=== PATIENT | female | born 1990 | race Caucasian/White ===

== ENCOUNTER 2017-02-24 17:33 | Inpatient (IN) ==
--- NOTE | 2017-02-24 16:10 | OB/GYN History & Physical ---
Date of Encounter: 03/01/17 Time of Encounter: 16:01 Assessment and Plan (1) with 37 weeks completed gestation Status: Acute (T1 L1) 37w 1d vaginal delivery x1. complications: Obesity. Hx C. Trachomatis in first . OB: Dr. Miranda. Will intermittently monitor per patient preference. Will continuously monitor if note any concerns for distress. Have encouraged patient to speak with anesthesia regarding epidural knowing she can maintain her refusal. Will manage expectantly. May augment or induce labor as needed. History of Present Illness Chief complaint: Labor evaluation HPI: Ms. Avendano is a 26 year old female presents from Dr. Miranda's office to L&D for evaluation of labor. (T1 L1) 37w 1d complications: Obesity. Hx C. Trachomatis in first . OB: Dr. Miranda. Contraction onset 08:00. This afternoon, contractions noted to be 15min apart and cervix dilated 4cm. She notes light spotting while in L&D. No gush of fluids. Meds: PMH: Allergies: PCN. Blood type: O+ GBS: (-) Rubella IgG: (+) Varicella IgG: (+) HbSAg: non reactive @ 09/01/2016 HIV: non reactive T. Pallidum Ab: (-) N. Gohorrhoeae DNA: (-) C. Trachomatis DNA: (-) Patient prefers to not have an epidural so that she can walk after delivery; has back pain relieved with activity. Baby girl: Zayra Charge Operator: Dr. Langley Past Med Surg Social Fam HX - Past Medical History Medical history: non-contributory Psychiatric history: no psych history - Past Surgical History Surgical History: no surgical history - Social History Smoking Status: Never smoker Alcohol use: none Drug use: none - Family History Mother History Unknown: Yes Hx Family Neuromuscular Disorders: Yes (chiari malformation type I) Obstetrical History - Pregnancies : 2 Para: 1 Term: 1 : 0 Ab's: 0 Livin Medications and Allergies Cvs Loratadine-D 24Hr Tablet 10 mg PO RONALD 02/24/17 [History] RX: Vit No.124/Iron/FA [ Vitamin Tablet] 1 tab PO 02/24/17 [ History] Breast Pump [BREAST PUMP] 1 each .ROUTE AD #1 each 02/26/17 [Rx] RX: Ibuprofen [Motrin] 600 mg PO Q6HR PRN #60 tablet 02/26/17 [Rx] RX: Vit/FA 1 each PO DAILY tablet 02/26/17 [Rx] Allergies penicillin G Allergy (Mild, Verified 02/24/17 15:34) Hives Review of System OB - Nose, mouth, and throat Nose, mouth and throat: no headache(s) - Cardiovascular Cardiovascular: no chest pain, no diaphoresis, no dyspnea - Respiratory Respiratory: no cough - Gastrointestinal Gastrointestinal: nausea, no abdominal pain, no change in bowel habits, no dysphagia, no heartburn - Genitourinary Genitourinary: vaginal discharge (spotting), no difficulty urinating Exam - Vital Signs Vital signs: Initial Vital Signs Temp Pulse Resp BP 97.5 F L 116 20 137/77 02/24/17 14:25 02/24/17 14:25 02/24/17 14:25 02/24/17 14:25 - Constitutional Constitutional: well developed, well nourished, no acute distress, obese - HEENT HEENT: Normocephaly, Mucus Membranes Moist - Neck Neck exam: normal inspection - Lungs Respiratory exam: CTAB - Cardiovascular Cardiovascular exam: RRR, +S1, +S2 - Abdomen Abdomen: Present: bowel sounds normal, gravid, non tender. Absent: guarding noted - Extremities Extremities exam: normal inspection, radial pulses palpable and symetrical Results Result Diagrams: 02/24/17 18:14 All other labs normal. - VTE Reasons for not Prescribing Prophylaxis: Treatment not Indicated - Low risk for VTE
[~2017-02-24 17:33] MED LIST: Famotidine 20 MG/2 ML VIAL IVP PRN; Naloxone 0.4 MG/ML INJ IVP PRN; Ondansetron 4 MG/2 ML VIAL IVP PRN
[2017-02-24] MEDS ORDERED: *HR* Nalbuphine 20 MG/ML AMPUL IVP PRN (17:37)
--- NOTE | 2017-02-24 17:37 | OB Labor Progress Note ---
Date of Encounter: 02/24/17 Time of Encounter: 17:35 Labor Progress Note - Subjective Subjective: Patient reports contractions are getting stronger and increase in bloody show. - Cervix Cervix: 5/100/-1 - Heart Tones Heart Tones: 120 bpm moderate variability + 15x15 accels no decels noted. Cat. 1 tracing - [place]: irregular - Interventions Interventions: SVE, discussed patient with Dr. Miranda. Orders received to admit patient for delivery. - Plan Plan: Admit for delivery. Patient may have nubain and epidural for pain if desires.
[2017-02-24] MEDS ORDERED: Ringers Solution, Lactated 1,000 ML IVC SCH (17:45)
[2017-02-24 18:25] LABS: Basophils # 0.1 K/mcL (0.0-0.2); Basophils % 0.3 %; Eosinophils # 0.1 K/mcL (0.0-0.6); Eosinophils % 0.4 %; Hematocrit 41.8 % (35.3-44.9); Hemoglobin 13.8 g/dL (11.5-15.4); Immature Granulocytes % 0.5 % (0-4); Lymphocytes # 1.4 K/mcL (0.6-4.6); Lymphocytes % 7.8 %; Mean Corpuscular Volume 84.8 fL (83.0-100.0); Mean Platelet Volume 9.7 fL (9.4-12.4); Monocytes # 0.9 K/mcL (0.0-1.3); Monocytes % 5.1 %; Neutrophils # 15.1 K/mcL (1.6-8.9); Platelet Count 342 K/mcL (140-400); Red Blood Count 4.93 M/mcL (3.82-4.97); Red Cell Distribution Width 13.8 % (11.5-14.5); Segmented Neutrophils % 85.9 %
--- NOTE | 2017-02-24 19:49 | Anesthesia Evaluation PreOp ---
Date of Encounter: 02/24/17 Time of Encounter: 19:32 - Past History Planned Operation: vaginal del, , 37wk, katie with cer Cardiac History: Denies any Significant Hx Pulmonary History: Denies Any Significant HX ARTIFICIAL INSEMINATION TECHNICIAN History: Denies Any Significant HX Other Medical History: Other (chronic back pain, with radiculapathy bilateral Hips, not postional according to patient. previous epidural.) Alcohol Use: none Drug use: none Medications and Allergies Cvs Loratadine-D 24Hr Tablet 10 mg PO RONALD 02/24/17 [History] Vit No.124/Iron/FA [ Vitamin Tablet] 1 tab PO 02/24/17 [History ] Allergies penicillin G Allergy (Mild, Verified 02/24/17 15:34) Hives Anesthesia Results - Labs 02/24/17 18:14 Anesthesia Exam - HEENT Pupil (Motor): Pupils equal Mallampati: II Teeth: Normal Oral Opening: Greater than 3 - ARTIFICIAL INSEMINATION TECHNICIAN LOC: Oriented ARTIFICIAL INSEMINATION TECHNICIAN Motor: Normal RUE, Normal LUE, Normal RLE, Normal LLE, Normal Face ARTIFICIAL INSEMINATION TECHNICIAN Sensory: Normal: RUE, LUE, RLE, LLE, Face - Cardiac Rhythm: Regular Murmur: None - Pulmonary Breath Sounds: bilateral Clear Respiratory Effort: Symmetrical Anesthesia Assess/Plan ASA Score: 3 (MO, chronic back pain) Modified Kingsley Scale for Level of Consciousness: Cooperative, oriented, and tranquil Anesthetic Plan: General, Regional Monitoring Plan: Standard Monitors
[2017-02-24] MEDS ORDERED: Epidural Premix (fent/bupiv) 110 ML EP ONE (22:12)
--- NOTE | 2017-02-24 23:05 | Anesthesia Procedures ---
Date of Encounter: 02/24/17 Time of Encounter: 22:19 Procedures: Anesthesia - Epidural/Spinal Patient ID/Chart reviewed: Yes Patient examined: Yes OB Eval: Gestational age: 37 OB Eval: : 2 OB Eval: Hx Para: 1 OB Eval: Contractions: Non-stressed pattern Consent Obtained: Yes Supplemental Oxygen: None/Room Air Site Prep: Aseptic Technique, Sterile prep and drape, 0.5% Chlorhexidine/Alcohol Patient position: upright Local Anesthetic: Lidocaine 1% Amount of Local Anesthetic used: 2 Touhy Needle Gauge: 18 Touhy Needle Depth (cm): 8 Catheter Depth at Skin (cm): 12 Test Dose (1.5% Lido + Epi): Volume given (mls): 3 Test Dose Result: Negative Loading Dose: Other: 12 from solution Loading Dose Administered: Thru Catheter Infusion Med: 0.125% Bupivacaine w/ 2 mcg/ml Fentanyl Infusion Rate (mls/hr): [address]: Tegaderm, Tape Interspace Used: L3-L4 Loss of Resistance (LISA): Yes (saline) Blood: Yes (first catheter heme noted see note!!!!) CSF: No Paresthesia: No Procedure: vss though out, level to T6 bilateral, FHR stable per RN's. first cath heme noted cleared with saline neg heme, neg test, heme coming back when cath lowered, cath withdrawn 1 cm neg heme, neg test, heme again coming back, decision to abort and move up a level L3-4 times one pass to LISA. cath easly. neg test. vss though out, FHR stable though out per RN's
--- NOTE | 2017-02-25 00:10 | OB Labor Progress Note ---
Date of Encounter: 02/24/17 Time of Encounter: 00:07 Labor Progress Note - Subjective Subjective: Comfortable with epidural. Pt tachy in 140's states her heart rate is usually very high and her mother has the same issue. - Cervix Cervix: Ant. lip/ 0 station - Heart Tones Heart Tones: 140/minimal/ accel with scalp stim/ variables Cat II - Interventions Interventions: Placed FSE earlier when trying to discern maternal from heart rate, AROM for small amount clear and blood tinged fluid. - Plan Plan: Attempted trial push with minimal head descent. Will labor down with peanut ball until feels pressure or has had descent. Anticipate
[2017-02-25] MEDS ORDERED: Oxytocin 20 units/ LR 1000 mL 20 UNIT/1,000 ML BAG IVC ONE (00:55)
--- NOTE | 2017-02-25 01:31 | OB/GYN Procedure Note ---
Delivery - Delivery Date: 02/25/17 Provider: Mackenzie Walters) Intrapartum events: none Delivery induction: none Delivery augmentation: rupture of membranes Delivery monitor: external FHT, external uterine, internal FHT Anesthesia: epidural Estimated Blood Loss: 200 - (s) A Delivery Date: 02/25/17 Delivery Time: 01:04 Presentation: vertex Position: OA Route of delivery: Gender: Female Viability: Viable Pounds: 7 Ounces: 8 Weight Gram: 3395 kg at 1 minute: 8 at 5 mins: 9 Shoulder Dystocia: encountered Shoulder Dystocia Maneuvers: Tesfaye maneuver Placenta: spontaneous - Repair Episiotomy: none Laceration Description: None - Complications Delivery complications: none Delivery comments: Pt labored down until lower and feeling pressure began maternal bearing down efforts. to liveborn girl. vertex delivered OA with turtle sign noted prepped for dystocia, restitution to MARC. Shoulder dystocia identified Mc partida positioning relieved dystocia and was followed by delivery of shoulders and infant. Infant placed on maternal abdomen stimulated to cry. Delayed cord clamping, Placenta delivered spontaneously (Rodríguez) intact on inspection. Pitocin per policy. Perineum intact with no lacerations. Fundus firm EBL 200mls. Dr. Miranda present for entire procedure. - Disposition Mom disposition: stable in LDR [place] disposition: stable in LDR
[2017-02-25] MEDS ORDERED: Lanolin 28 GM TUBE TP PRN (01:59)
[2017-02-25] MEDS ORDERED: Oxytocin 20 units/ LR 1000 mL 20 UNIT/1,000 ML BAG IVC SCH (01:59)
[2017-02-25] MEDS ORDERED: Acetaminophen 325 MG TABLET PO PRN (01:59)
[2017-02-25] MEDS ORDERED: Benzocaine/Menthol 56 GM AEROSOL SPRAY TP PRN (01:59)
[2017-02-25] MEDS: Ibuprofen 600 MG TABLET PO PRN ×2 (06:16→20:26)
[2017-02-25] MEDS: Prenatal Vit/FA 1 EACH TABLET PO SCH (08:11)
--- NOTE | 2017-02-26 08:18 | Discharge Summary ---
Date of Encounter: 02/24/17 Time of Encounter: 08:16 - Discharge Medications Prescriptions: Ibuprofen [Motrin] 600 mg PO Q6HR PRN #60 tablet PRN Reason: Cramping Breast Pump [BREAST PUMP] 1 each .ROUTE AD #1 each Home Medications: Cvs Loratadine-D 24Hr Tablet 10 mg PO RONALD 02/24/17 [History] Vit No.124/Iron/FA [ Vitamin Tablet] 1 tab PO 02/24/17 [History ] Breast Pump [BREAST PUMP] 1 each .ROUTE AD #1 each 02/26/17 [Rx] Ibuprofen [Motrin] 600 mg PO Q6HR PRN #60 tablet 02/26/17 [Rx] Vit/FA 1 each PO DAILY tablet 02/26/17 [Rx] Allergies/Adverse Reactions: Allergies penicillin G Allergy (Mild, Verified 02/24/17 15:34) Hives Data Procedures and tests throughout hospitalization: Laboratory Tests 02/24/17 18:14 WBC 17.5 H RBC 4.93 Hgb 13.8 Hct 41.8 MCV 84.8 MCH 28.0 MCHC 33.0 RDW 13.8 Plt Count 342 MPV 9.7 Immature Gran % 0.5 Seg Neutrophils % 85.9 Lymphocytes % 7.8 Monocytes % 5.1 Eosinophils % 0.4 Basophils % 0.3 Neutrophils # 15.1 H Lymphocytes # 1.4 Monocytes # 0.9 Eosinophils # 0.1 Basophils # 0.1 Date of admission: 02/24/17 17:33 Primary care physician: Waldemar Martinez MD Consults: 02/25/17 01:59 Consult to Regulatory And Compliance Technician [CONS] Routine Comment: Vaginal delivery, consult needed Discharging clinician: Tejal Connors Anticipated date of discharge: 02/26/17 - Patient Status Disposition: Home, Self-Care Condition: Good Functional capacity at discharge: independent ambulation - Discharge Instructions Follow Up With: Waldemar Martinez MD [Primary Care Provider] - Tejal Connors CNM [Non-Partnered Physician] - - Diet and Activity Activity: increase activity as tolerated Diet: regular diet Hospital Course Reason for admission: active labor Delivery: Episiotomy: none Laceration: none Other procedures: none complications: none Discharge diagnosis: IUP at term delivered baby: female (breast feeding) Time Attestation: Total time spent providing and/or coordinating discharge services: Time Spent: Less than 30 minutes Exam - Constitutional Vitals: Temp Pulse Resp BP Pulse Ox 98.0 F 103 18 116/82 98 02/25/17 21:19 02/25/17 21:19 02/25/17 21:19 02/25/17 21:19 02/25/17 21:19 General appearance IM: A&O X 3, pleasant, obese, answers questions appropriately - Respiratory Respiratory exam: Present: CTAB - Cardiovascular Cardiovascular exam IM: Present: RRR, +S1, +S2 - GI/Abdominal GI/Abdominal exam IM: normal bowel sounds - Uterine Tone: Firm Uterus Position: 1 Finger Below Umbilicus, Midline - Extremities Exam Extremities exam IM: Present: full ROM, normal capillary refill, normal inspection - Neurological Exam Neurological exam: alert, oriented X3, reflexes normal
[2017-02-26 08:24] VITALS: BP 123/82
[2017-02-26] MEDS: Prenatal Vit/FA 1 EACH TABLET PO SCH (08:27)
[2017-02-26] MEDS: Ibuprofen 600 MG TABLET PO PRN (08:31)
== END 2017-02-26 13:06 | disposition home or self-care (01) | DRG 775 ==
LOC: 1NENULAB → 1NENUOBS 02-25 04:20
PROVIDERS: ADMIT Obstetrics & Gynecology; ATTEND Obstetrics & Gynecology